=== PATIENT | male | born 1950 | race Caucasian/White ===

== ENCOUNTER → 2016-07-16 | Outpatient (CLI) | payer OTHER, MEDICARE ==
[2016-07-16 16:19] LABS: CHLORIDE,CL 110 mmol/L (98-110); SODIUM,NA 135 mmol/L (136-146)
== END ==
LOC: MW.CHIM 15:34
PROVIDERS: ATTEND Internal Medicine
DX: R19.00 Intra-abdominal and pelvic swelling, mass and lump, unspecified site (principal); R33.9 Retention of urine, unspecified; R73.9 Hyperglycemia, unspecified
CPT/HCPCS: 36415; 80053; 83036; 84153; 85025

== ENCOUNTER → 2016-08-15 | Outpatient (CLI) | payer OTHER, MEDICARE ==
[2016-08-15 11:37] LABS: CHLORIDE,CL 111 mmol/L (98-110); SODIUM,NA 139 mmol/L (136-146)
== END ==
LOC: MW.CHIM 10:42
PROVIDERS: ATTEND Internal Medicine
DX: D64.9 Anemia, unspecified (principal); R33.9 Retention of urine, unspecified
CPT/HCPCS: 36415; 80048; 84153; 85025